=== PATIENT | male | born 2000 | race Caucasian/White ===

== ENCOUNTER 2020-10-25 10:06 | Emergency (ER) | payer SELFPAY ==
[~2020-10-25] VITALS: Ht 177.8 cm; Wt 71.0 kg
[2020-10-25 10:10] VITALS: BP 152/96
== END 2020-10-25 10:56 | disposition left against medical advice (07) ==
LOC: ER 10:53
DX: Z00.00 Encounter for general adult medical examination without abnormal findings (principal)
CPT/HCPCS: 99283; Z7610

== ENCOUNTER 2020-11-15 14:16 | Emergency (ER) | payer OTHER ==
[~2020-11-15] VITALS: Ht 167.6 cm; Wt 65.0 kg
[2020-11-15 16:49] VITALS: BP 104/68
== END 2020-11-15 16:50 | disposition home or self-care (01) ==
LOC: ER 14:16
DX: S61.411A Laceration without foreign body of right hand, initial encounter (principal); W25.XXXA Contact with sharp glass, initial encounter; Y93.9 Activity, unspecified; Y92.9 Unspecified place or not applicable
CPT/HCPCS: 12004; 73120; 99283; A4217